=== PATIENT | female | born 1990 ===

== ENCOUNTER 2020-06-17 00:11 | Inpatient (IN) | payer SELFPAY ==
[2020-06-17] MEDS ORDERED: TERBUTALINE 1 MG/1 ML INJ IVP PRN (00:29)
[2020-06-17] MEDS ORDERED: AMPICILLIN/NS 2 GM/100 ML 2 GM/100 ML BAG IV ONE (00:29)
[2020-06-17] MEDS ORDERED: fentaNYL 100 MCG/2 ML INJ IV PRN (00:29)
[2020-06-17] MEDS ORDERED: MINERAL OIL 30 ML ORAL LIQD PO PRN (00:29)
[2020-06-17] MEDS ORDERED: NALOXONE 0.4 MG/1 ML INJ IV PRN (00:29)
[2020-06-17] MEDS ORDERED: TERBUTALINE 1 MG/1 ML INJ SUB-Q PRN (00:29)
[2020-06-17] MEDS ORDERED: ePHEDrine SULFATE 50 MG/1 ML INJ IV PRN (00:29)
[2020-06-17] MEDS ORDERED: ONDANSETRON 4 MG/2 ML INJ IV PRN ×2 (00:29→04:53)
[2020-06-17] MEDS ORDERED: BUTORPHANOL 2 MG/1 ML INJ IV PRN ×2 (00:29)
[2020-06-17] MEDS ORDERED: LIDOCAINE (2%) 20 MG/1 ML VIAL 20 ML MDV INFILTRATI ONE ×2 (00:29→03:38)
[2020-06-17 00:51] LABS: Hematocrit 36.5 % (30.3-42.9); Hemoglobin 12.1 gm/dl (10.1-14.3); Mean Corpuscular HGB Conc 33 % (30-34); Mean Corpuscular Volume 87 fl (79-97); Platelet Count 188 K/mm3 (140-440); Red Blood Count 4.19 M/mm3 (3.65-5.03); Red Cell Distribution Width 15.3 % (13.2-15.2)
[2020-06-17] MEDS ORDERED: OXYTOCIN DRIP 30 UNITS/500 ML BAG IV SCH ×2 (01:00)
[2020-06-17] MEDS ORDERED: OXYTOCIN 20 UNIT/1000ML DRIP 20 UNITS/1,000 ML BAG IV SCH (01:00)
[2020-06-17] MEDS: LACTATED RINGERS 1,000 ML IV SCH ×2 (01:40→02:23)
[2020-06-17] MEDS ORDERED: DEXMEDETOMIDINE 200 MCG/2 ML VIAL IV ONE (02:25)
--- NOTE | 2020-06-17 03:22 | Anesthesia Consultation ---
Anesthesia Consult and Med Hx Date of service: 06/17/20 - Airway Anesthetic Teeth Evaluation: Good ROM Head & Neck: Adequate Mental/Hyoid Distance: Adequate Mallampati Class: Class II Intubation Access Assessment: Good - Pulmonary Exam CTA: Yes - Cardiac Exam Cardiac Exam: RRR - Pre-Operative Health Status ASA Pre-Surgery Classification: ASA2 Proposed Anesthetic Plan: Epidural - Pulmonary Hx Smoking: No Hx Asthma: No Hx Respiratory Symptoms: No SOB: No COPD: No Home Oxygen Therapy: No Hx Pneumonia: No Hx Sleep Apnea: No - Cardiovascular System Hx Hypertension: No Hx Coronary Artery Disease: No Hx Heart Attack/AMI: No Hx Angina: No Hx Percutaneous Transluminal Coronary Angioplasty (PTCA): No Hx Cardia Arrhythmia: No Hx Pacemaker: No Hx Internal Defibrillator: No Hx Valvular Heart Disease: No Hx Heart Murmur: No Hx Peripheral Vascular Disease: No - Central Nervous System Hx Neuromuscular Disorder: No Hx Seizures: No CVA: No Hx Back Pain: Yes Hx Psychiatric Problems: No - Gastrointestinal Hx Ulcer: No Hx Gastroesophageal Reflux Disease: No - Endocrine Hx Renal Disease: No Hx End Stage Renal Disease: No Hx Cirrhosis: No Hx Liver Disease: No Hx Insulin Dependent Diabetes: No Hx Non-Insulin Dependent Diabetes: No Hx Thyroid Disease: No Hx Hypothyroidism: No Hx Hyperthyroidism: No - Hematic Hx Anemia: No Hx Sickle Cell Disease: No - Other Systems Hx Alcohol Use: No Hx Substance Use: No Hx Cancer: No Hx Obesity: No
--- NOTE | 2020-06-17 03:31 | Progress Note ---
Labor Epidural - Labor Epidural Start Time: 02:41 Stop Time: 02:48 Performed by:: STACI AKINS (Aneesh Porras, MITZI) Procedure: Patient is requesting a laboring epidural for laboring pain. Patient IDed, H&P reviewed, all questions and concerns were answered, and consent was signed. Timeout was performed at bedside. Patient in sitting position. Sterile prep and drape was performed. 3ml of 1% lidocaine skin wheal at L[3]- L [4]. 18- gauge Touhy epidural needle was advanced to loss of resistance with Saline technique 4cm. Negative CSF negative blood. Epidural catheter advanced to [15] centimeters. [negative] Aspiration [negative] test dose. Sterile dressing applied. Patient tolerated procedure.
[2020-06-17] MEDS ORDERED: AMPICILLIN/NS 1 GM/50 ML 1 GM/50 ML BAG IV SCH (04:32)
--- NOTE | 2020-06-17 04:47 | History and Physical Report ---
History of Present Illness Date of examination: 06/17/20 Date of admission: 06/17/20 00:12 Chief complaint: " I think my h2o broke" History of present illness: 30 y/o female presented to triage with c/o uc and srom cl fluid at 2330. She is a [facility] pt from the [place] location. Pt denies med/surg/social/family hx and denies problems throughout her preg. Pt's records are not available. GBS is unknown. Past History Past Medical History: no pertinent history Social history: - Obstetrical History Expected Date of Delivery: 06/20/20 Actual Gestation: 39 Week(s) 4 Day(s) : 2 Para: 1 Hx # Term Pregnancies: 1 Number of Pregnancies: 0 Spontaneous Abortions: 0 Induced : 0 Number of Living Children: 1 Medications and Allergies Allergies Allergy/AdvReac Type Severity Reaction Status Date / Time No Known Allergies Allergy Verified 06/16/20 17:11 Active Meds: Active Medications Butorphanol Tartrate (Stadol) 1 mg IV Q2H PRN PRN Reason: Pain, Moderate(4-6) LABOR PAIN Butorphanol Tartrate (Stadol) 2 mg IV Q2H PRN PRN Reason: Pain , Severe (7-10) Ephedrine Sulfate (Ephedrine Sulfate) 10 mg IV Q2M PRN PRN Reason: Hypotension Fentanyl (Sublimaze) 100 mcg IV Q2H PRN PRN Reason: Pain,Severe (7-10) LABOR PAIN Oxytocin/Sodium Chloride (Pitocin/Ns 20 Unit/1000ml Drip) 20 units in 1,000 mls @ 125 mls/hr IV DIRECT COLT Last Admin: 06/17/20 03:32 Dose: 125 mls/hr Documented by: Oxytocin/Sodium Chloride (Pitocin/Ns 30 Unit/500ml) 30 units in 500 mls @ 1 mls/hr IV TITR COLT; Protocol Oxytocin/Sodium Chloride (Pitocin/Ns 30 Unit/500ml) 30 units in 500 mls @ 0 mls/hr IV TITR COLT; Protocol Lactated Ringer's (Lactated Ringers) 1,000 mls @ 125 mls/hr IV DIRECT COLT Last Admin: 06/17/20 02:23 Dose: 125 mls/hr Documented by: Ampicillin Sodium (Ampicillin/Ns 1 Gm/50 Ml) 1 gm in 50 mls @ 100 mls/hr IV Q4HR COLT; Protocol Mineral Oil (Mineral Oil) 30 ml PO QHS PRN PRN Reason: Constipation Last Admin: 06/17/20 04:36 Dose: 30 ml Documented by: Naloxone HCl (Naloxone) 0.1 mg IV Q2MIN PRN PRN Reason: Res Rate </= 8 or 02 SAT < 92% Ondansetron HCl (Zofran) 4 mg IV Q8H PRN PRN Reason: Nausea And Vomiting Terbutaline Sulfate (Brethine) 0.25 mg SUB-Q ONCE PRN PRN Reason: Hyperstimulation/Hypertonicity Terbutaline Sulfate (Brethine) 0.25 mg IVP ONCE PRN PRN Reason: Hyperstimulation/Hypertonicity Review of Systems All systems: negative Breasts: normal - Vital Signs Vital signs: Vital Signs Temp 98.4 F 06/17/20 00:15 Temp Pulse Resp BP Pulse Ox 98.1 F 68 154/85 99 06/17/20 01:31 06/17/20 04:35 06/17/20 04:35 06/17/20 03:14 - Physical Exam Breasts: Positive: normal Abdomen: Positive: normal appearance, soft, normal bowel sounds, other (gravid) Genitourinary (Female): Positive: normal external genitalia, normal perenium Vulva: both: normal Vagina: Positive: normal moisture Uterus: Positive: normal size, enlarged (gravid), normal contour Adnexa: both: normal Anus/Rectum: Positive: normal perianal skin Extremities: Positive: normal - Obstetrical FHR: auscultation normal, category 1 Uterine Contraction Monitor Mode: External Cervical Dilatation: 5 Cervical Effacement Percentage: 80 station: -2 Uterine Contraction Frequency (min): q3-6 Uterine Contraction Pattern: Regular Uterine Tone Measurement Phase: Resting Uterine Contraction Intensity: Strong/Firm Results Result Diagrams: 06/17/20 00:35 Abnormal lab results 06/17/20 Range/Units 00:35 RDW 15.3 H (13.2-15.2) % All other labs normal. Assessment and Plan A: IUP@ 39.4 wks with SROM cl fluid P: Admit to L&D Continuous monitoring GBS prophylaxis Anticipate - Patient Problems (1) Term Current Visit: Yes Status: Acute (2) SROM (spontaneous rupture of membranes) Current Visit: Yes Status: Acute
[2020-06-17] MEDS ORDERED: IBUPROFEN 800 MG TAB PO PRN (04:51)
[2020-06-17] MEDS ORDERED: WITCH HAZEL/ GLYCERIN PAD TP PRN (04:53)
[2020-06-17] MEDS ORDERED: PROMETHAZINE 25 MG RECT SUPP PR PRN (04:53)
[2020-06-17] MEDS ORDERED: diphenhydrAMINE 25 MG CAP PO PRN (04:53)
[2020-06-17] MEDS ORDERED: PROMETHAZINE 25 MG TAB PO PRN (04:53)
[2020-06-17] MEDS ORDERED: MAGNESIUM HYDROXIDE (MOM) ORAL LIQD UDC PO PRN (04:53)
[2020-06-17] MEDS ORDERED: ACETAMINOPHEN 325 MG TAB PO PRN (04:53)
[2020-06-17] MEDS ORDERED: LANOLIN/ZINC/DIMETHICONE (LANSINOH) 7 GM TP PRN (04:53)
[2020-06-17] MEDS: oxyCODONE /ACETAMINOPHEN 5-325MG TAB PO PRN (05:18)
--- NOTE | 2020-06-17 05:28 | Procedure Note ---
OB Delivery Note - Delivery Date of Delivery: 06/17/20 Surgeon: KANU GERARD Estimated blood loss: 100cc - Vaginal Delivery presentation: vertex Delivery position: OA Delivery induction: none Delivery monitor: external FHT, external uterine Route of delivery: Delivery placenta: spontaneous Delivery cord: nuchal cord Episiotomy: none Delivery laceration: 2nd degree, other (LEFT LABIAL TEAR) Delivery repair: vicryl Anesthesia: epidural Delivery comments: Called to pt's rm for delivery. SVE 10/100%/ +1 and pushing begin. of a viable live female with nuchal cord around left arm. Spontaneous delivery of 's head and shoulders. Infant was placed on mother's chest/abd for bonding. Delayed cord clamping x 90 sec then cord was clamped x2 and cut by FOB. Afterwards infant was given to awaiting NICU nurse for an initial asses. 8/9. Spontaneous delivery of intact placenta with CVX3. FF at U1 with fundal massage and IV Pitocin. Exploration of tears revealed a 2nd degree perineal laceration and a left labial tear. Lacerations were repaired with a 3-0 vicryl on a CT1. EBL 100cc. Mom and baby stable. - Infant A at 1 minute: 8 at 5 minutes: 9 Infant Gender: Female (FW [id number])
[2020-06-17] MEDS: IBUPROFEN 600 MG TAB PO SCH ×3 (06:42→22:08)
[2020-06-17] MEDS: DOCUSATE SODIUM 100 MG CAP PO SCH ×2 (09:14→22:08)
[2020-06-17] MEDS: PRENATAL VIT27-FE FUMARATE-FOLIC ACID VIT TAB PO SCH (09:14)
[2020-06-17 14:16] LABS: Hemoglobin 11.7 gm/dl (10.1-14.3)
--- NOTE | 2020-06-17 14:22 | Post Anesthesia Evaluation ---
- Post Anesthesia Evaluation Patient Participated: Yes Airway Patent: Yes Stable Respiratory Function: Yes Nausea/Vomiting: No Temp > 96.8F: Yes Pain Manageable: Yes Adequeate Hydration: Yes Anesthesia Complications: No Block Receding Appropriately: Yes Patient on Ventilator: No
[2020-06-18] MEDS: IBUPROFEN 600 MG TAB PO SCH ×3 (08:39→22:55)
--- NOTE | 2020-06-18 10:44 | Progress Note ---
Assessment and Plan A: day 1 S/P . P: Continue current management. Ambulate; elevate feet when at rest. Anticipate discharge home tomorrow if patient continues to do well. Subjective - Subjective Date of service: 06/18/20 Principal diagnosis: day 1 S/P Interval history: day 1 S/P . Doing well. Denies headache, visual disturbance, chest pain, shortness of breath, cough, dizziness, leg pain, or heavy bleeding. Patient reports: appetite normal, voiding normally, pain well controlled, flatus, ambulating normally, no dizzy ambulation, no nauseated : doing well Objective - Vital Signs Latest vital signs: Vital Signs Temp Pulse Resp BP BP Pulse Ox 06/18/20 08:00 99 F 94 H 18 139/76 97 06/18/20 01:05 97.9 F 60 16 130/79 98 06/17/20 17:44 98.3 F 68 18 132/80 98 Intake and Output 06/17/20 06/18/20 06/18/20 23:59 07:59 15:59 Intake Total 500 420 240 Balance 500 420 240 Intake: Oral 240 240 Intake, Free Water 260 180 Tube Feeding 240 Other: Total, Intake Amount 240 240 240 # Voids Void 2 1 - Exam Cardiovascular: Present: Regular rate, Normal S1, Normal S2 Lungs: Present: Clear to auscultation Abdomen: Present: normal appearance, soft, normal bowel sounds. Absent: distention, tenderness, guarding, rigidity Uterus: Present: normal, firm, fundal height below umbilicus. Absent: bogginess, tenderness Extremities: Present: edema (moderate pedal edema bilaterally). Absent: tenderness
[2020-06-18] MEDS: DOCUSATE SODIUM 100 MG CAP PO SCH ×2 (10:59→22:55)
[2020-06-18] MEDS: PRENATAL VIT27-FE FUMARATE-FOLIC ACID VIT TAB PO SCH (11:00)
[2020-06-18] MEDS: oxyCODONE /ACETAMINOPHEN 5-325MG TAB PO PRN (22:55)
[2020-06-19] MEDS: IBUPROFEN 600 MG TAB PO SCH (06:50)
--- NOTE | 2020-06-19 10:30 | Progress Note ---
Assessment and Plan A: day 2 S/P . P: Discharge patient home today. Discussed with patient discharge instructions and warning signs. Advised patient to avoid intercourse, lifting and housework. Advised patient to continue taking vitamin and iron supplement at home. Advised patient to follow up at [facility] in 1 week. Abdoul pleitez voiced understanding of all instructions. Subjective - Subjective Date of service: 06/19/20 Principal diagnosis: day 2 S/P Interval history: day 2 S/P . Doing well. Denies headache, visual disturbance, chest pain, shortness of breath, cough, dizziness, leg pain, or heavy bleeding. Voiding without difficulty, ambulating well, tolerating a regular diet. Patient reports: appetite normal, voiding normally, pain well controlled, flatus, ambulating normally, no dizzy ambulation, no nauseated : doing well Objective - Vital Signs Latest vital signs: Vital Signs Temp Pulse Resp BP BP Pulse Ox 06/19/20 00:49 98.0 F 79 20 133/84 95 06/18/20 16:56 97.9 F 85 18 134/77 98 Intake and Output 06/18/20 06/19/20 06/19/20 23:59 07:59 15:59 Intake Total 240 480 Balance 240 480 Intake: Oral 240 120 Intake, Free Water 360 Other: Total, Intake Amount 240 120 # Voids Void 1 - Exam Cardiovascular: Present: Regular rate, Normal S1, Normal S2 Lungs: Present: Clear to auscultation Abdomen: Present: normal appearance, soft, normal bowel sounds. Absent: distention, tenderness, guarding, rigidity Uterus: Present: normal, firm, fundal height below umbilicus. Absent: bogginess, tenderness Extremities: Present: normal. Absent: tenderness
--- NOTE | 2020-06-19 10:34 | Discharge Summary ---
Providers - Providers Date of Admission: 06/17/20 00:12 Date of discharge: 06/19/20 Attending physician: VENKAT AGUILAR MD Primary care physician: VENKAT AGUILAR MD Hospitalization Reason for admission: active labor, rupture of membranes Delivery: Episiotomy: none Laceration: 2nd degree Other procedures: none complications: none Discharge diagnosis: IUP at term delivered [place] baby: female Pertinent studies: Labs Hospital course: Stable hospital course. Condition at discharge: Good Disposition: DC-01 TO HOME OR SELFCARE - Discharge Diagnoses (1) Term delivered Status: Acute Plan - Provider Discharge Summary Activity: routine, no sex for 6 weeks, no heavy lifting 4 weeks, no strenuous exercise Diet: routine Instructions: routine Additional instructions: Continue taking your vitamins at home. Follow up at [facility] within 1 week; you will need to call their office tomorrow morning to obtain an appointment. Call your doctor immediately for: * Fever > 100.5 * Heavy vaginal bleeding ( >1 pad per hour) * Severe persistent headache * Shortness of breath * Reddened, hot, painful area to leg or breast - Follow up plan Follow up: VENKAT AGUILAR MD [Primary Care Provider] - 7 Days Forms: [facility] Discharge Summary
[2020-06-19 12:41] VITALS: BP 127/84
== END 2020-06-19 12:42 | disposition home or self-care (01) | DRG 807 ==
LOC: TRG 00:11 → LD 00:12 → APU 01:10 → TRG 01:12 → OB 06:28
PROVIDERS: ADMIT Obstetrics & Gynecology; ATTEND Obstetrics & Gynecology
PROC: 10E0XZZ Delivery of Products of Conception, External Approach (ICD-10-PCS; principal; 2020-06-17)
PROC: 0KQM0ZZ Repair Perineum Muscle, Open Approach (ICD-10-PCS; 2020-06-17)
PROC: 3E0R3BZ Introduction of Anesthetic Agent into Spinal Canal, Percutaneous Approach (ICD-10-PCS; 2020-06-17)
PROC: 00HU33Z Insertion of Infusion Device into Spinal Canal, Percutaneous Approach (ICD-10-PCS; 2020-06-17)
DX: O69.81X0 Labor and delivery complicated by cord around neck, without compression, not applicable or unspecified (principal); Z37.0 Single live birth; O70.1 Second degree perineal laceration during delivery; Z3A.39 39 weeks gestation of pregnancy
CPT/HCPCS: 36415; 59025; 85014; 85018; 85027; 86592; 86706; 86708; 86762; 86850; 86900; 86901; 87806; G0378; J0290; J2590; J3490; J7120